=== PATIENT | male | born 1945 | race Caucasian/White ===

== ENCOUNTER 2017-08-20 16:42 | Inpatient (IN) | payer OTHER, MEDICARE ==
[~2017-08-20] VITALS: Ht 167.6 cm; Wt 71.9 kg
[2017-08-20 17:55] LABS: ABSOLUTE BASOPHIL COUNT 0 /CUMM (0.0-0.2); ABSOLUTE EOSINOPHIL COUNT 0 /CUMM (0.0-0.7); ABSOLUTE GRANULOCYTE CT 11.7 /CUMM (1.4-6.5); ABSOLUTE LYMPH COUNT 0.7 /CUMM (1.2-3.4); ABSOLUTE MONOCYTE COUNT 0.8 /CUMM (0.10-0.60); BASOPHIL % 0.2 % (0.0-2.0); EOSINOPHIL % 0.1 % (0-5); HEMATOCRIT 44.4 % (42-52); MEAN CORPUSCULAR HGB 28.7 PG (27.0-31.0); MEAN CORPUSCULAR HGB CONC 33.5 G/DL (33.0-37.0); MEAN CORPUSCULAR VOLUME 85.7 FL (80.0-94.0); MEAN PLATELET VOLUME 11.2 FL (7.4-10.4); PLATELET COUNT 96 /CUMM (130-400); RBC DISTRIBUTION WIDTH 13.5 % (11.5-14.5); RED BLOOD CELL CT 5.18 /CUMM (4.70-6.10); WHITE BLOOD CELL COUNT 13.3 /CUMM (4.8-10.8)
[2017-08-20 18:18] LABS: GRANULOCYTE % 88.6 % (42.2-75.2)
--- NOTE | 2017-08-20 20:43 | ED GENERAL ADULT ---
History of Present Illness General Chief Complaint: Fever Stated Complaint: FEVER, RIGHT SIDE OF HEADSKINRASH Source: aide Exam Limitations: poor historian Vital Signs & Intake/Output Vital Signs & Intake/Output Vital Signs Date Time Temp Pulse Resp B/P B/P Pulse O2 O2 Flow FiO2 Mean Ox Delivery Rate 08/20 2311 97.8 08/20 2310 97.8 08/21 1955 99.1 63 20 140/58 97 Room Air 08/20 1702 100.3 08/20 1656 100.8 72 18 137/69 95 Room Air ED Intake and Output 08/21 0000 08/20 1200 Intake Total Output Total Balance Patient 158 lb Weight Allergies Coded Allergies: fluoxetine (From PROZAC) (UNKNOWN 08/20/17) Triage Note: PT TO TRIAGE WITH ACT TUTOR , PER STAFF PT HAS NOT BEEN FEELING WELL, NOTED WITH FEVER AT HOME, PT TEMP 100.8 AT TRIAGE, MEDICATED WITH TYLENOL. PT NOTED WITH RIGHT EAR RED, SWOLLEN, QUESTION CELLULITIS. 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 yes Onset: Abrupt Duration: day(s): Timing: recent history HPI: 08/20/17 10:45 pm 72-year-old man presents to the emergency department with a sudden onset of severe right sided facial swelling and significant edema to the right ear. He also has fever and pain. He has a past medical history of cognitive impairment, mental retardation and cataracts. He has history of hearing loss. Past History Travel History Traveled to [place] past 21 day No Medical History Any Pertinent Medical History? 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 No Review of Systems Review of Systems Constitutional: Reports: fever. EENTM: Reports: ear pain, ear redness. Respiratory: Denies: short of breath. Cardiovascular: Denies: chest pain. GI: Denies: abdominal pain. Genitourinary: Reports: no symptoms. Musculoskeletal: Reports: see HPI. Skin: Reports: see HPI. Neurological/Psychological: Reports: no symptoms. Hematologic/Endocrine: Reports: no symptoms. Immunologic/Allergic: Reports: no symptoms. Physical Exam Physical Exam General Appearance: alert, awake, anxious Head: swelling, tenderness Eyes: Bilateral: normal appearance, PERRL, EOMI. Ears, Nose, Throat: normal pharynx, right facial swelling Neck: normal inspection, supple, full range of motion Respiratory: normal breath sounds, chest non-tender, no respiratory distress Cardiovascular: regular rate/rhythm Peripheral Pulses: 4+ radial (R), 4+ radial (L) Gastrointestinal: soft, non-tender Back: normal range of motion Extremities: normal range of motion Neurologic/Psych: awake, alert, oriented x 3 Skin: rash Comments: On physical exam the right ear is bright red and erythematous with significant swelling. Access to the external auditory canal is obtainable with otoscope but there is significant swelling. He has hot red angry erythema around the ear and streaking up around the right eye. There are no vesicular lesions. Core Measures ACS in differential dx? No CVA/TIA Diagnosis: No Sepsis Present: No Sepsis Focused Exam Completed? No Progress Differential Diagnoses I considered the following diagnoses in my evaluation of the patient: [ Cellulitis, malignant otitis externa, mastoiditis, varicella-zoster, necrotizing fasciitis] Plan of Care: Orders Procedure Date/time Status Regular Diet 08/21 B Active CBC WITHOUT DIFFERENTIAL 08/21 599 Active BASIC ELECTROLYTES PLUS BUN&CR 08/21 599 Active Change service to 08/21 0008 Active Pathway - chart 08/21 0001 Active Pathway - chart 08/20 2359 Active Patient Data 08/20 2343 Active ED Holding Orders 08/20 2316 Active Admit to inpatient 08/20 2316 Active Vital Signs 08/20 2316 Active Code Status 08/20 2316 Active BLOOD CULTURE 08/20 1704 Active LACTIC ACID 08/20 1703 Complete COMPREHENSIVE METABOLIC PANEL 08/20 1701 Complete CBC WITHOUT DIFFERENTIAL 08/20 1701 Complete Saline Lock 08/20 UNK Active House Staff 08/20 UNK Active Wound Care/Dressing 08/20 UNK Active VTE Mechanical Prophylaxis 08/20 UNK Active Current Medications Sig/Zulay Start time Last Medication Dose Stop Time Status Admin Enoxaparin Sodium 40 MG DAILY 08/21 1000 UNVr (Lovenox) Ampicillin Sodium/ 1,500 MG Q6 08/21 0600 UNVr Sulbactam Sodium (Unasyn) Sodium Chloride 100 ML (Normal Saline 0.9%) Hydrocodone Bitart/ 1 TAB Q6P PRN 08/21 0600 UNVr Acetaminophen (Vicodin) Acetaminophen 650 MG Q6P PRN 08/21 0100 UNVr (Tylenol) Morphine Sulfate 2 MG Q8P PRN 08/21 0015 UNVr (Morphine) Sodium Chloride 1,000 ML Q13H 08/21 0015 UNVr (Normal Saline 0.9%) 08/21 1314 Laboratory Tests 08/20/172002: Lactic Acid Cancelled 08/20/17 173: Lactic Acid 1.8 08/20/17 173: Anion Gap 13, Estimated GFR > 60, BUN/Creatinine Ratio 21.8, Glucose 110 H, Calcium 9.6, Total Bilirubin 0.6, AST 14 L, ALT 16 L, Alkaline Phosphatase 68, Total Protein 7.4, Albumin 4.2, Globulin 3.2, Albumin/Globulin Ratio 1.3, CBC w Diff NO MAN DIFF REQ, RBC 5.18, MCV 85.7, MCH 28.7, MCHC 33.5, RDW 13.5, MPV 11.2 H, Gran % 88.6 H, Lymphocytes % 5.4 L, Monocytes % 5.7, Eosinophils % 0.1, Basophils % 0.2, Absolute Granulocytes 11.7 H, Absolute Lymphocytes 0.7 L , Absolute Monocytes 0.8 H, Absolute Eosinophils 0, Absolute Basophils 0 Microbiology 08/20 173 BLOOD: Blood Culture - RECD 08/20 1724 BLOOD: Blood Culture - RECD Initial ED EKG: none Departure Departure Disposition: STILL A PATIENT Condition: Stable Clinical Impression Primary Impression: Cellulitis diffuse, face Referrals: Torrey Whaley MD (PCP/Family) Departure Forms: Customer Survey General Discharge Information Admission Note Spoke With: Torrey Whaley MD Documentation of Exam: Documentation of any treatments & extenuating circumstances including Concerns Regarding Discharge (functional status, medication knowledge or non-compliance, living conditions, etc.) that warrant an admission rather than observation: [The patient needs admission for IV antibiotics, reevaluation to ensure improvement.] Critical Care Note Critical Care Note Critical Care Time: non-applicable
[2017-08-21 00:47] VITALS: BP 128/62
--- NOTE | 2017-08-21 02:08 | History & Physical ---
See Addendum Tina CABALLEROLuna 08/21/17 0207: General Information and HPI MD Statement: I have seen and personally examined AUGUSTINA LOPEZ and documented this H&P. The patient is a 72 year old M who presented with a patient stated chief complaint of right ear swelling and erythema. 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 The patient lives at a shelter and member of his care team gives most of the history as the patient does have some degree of cognitive impairment. 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 The patient usually wears hearing aids bilaterally every day. The patient states that he has no pain in the ear, no pain in the pinna or targus, no fever, no ear discharge, dizziness, falls. He did apparently have a fever of 101 and chills. The patient has not had any recent antibiotic use, no new drugs. He states that his hearing was worse couple days ago but is better now. His appetite is decreased. According to the caregiver, the patient does have teeth that need to be extracted, but has no current tooth infection. The patient has never had any symptoms like this before. The patient notes no injury to the ear but the staff does admit to using Q-tips to clean the ears. The patient denies diaphoresis, nausea, vomiting, abdominal pain, diarrhea, constipation, chest pain, shortness of breath, urinary changes. The patient's brother is his legal guardian. The patient has no history of smoking, drugs, drinking. The patient walks with no problems unassisted. [facility]. 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 Psychosocial History Where do you live? 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 EENTM: Reports: ear redness, hearing changes. Denies: eye pain, eye drainage, eye tearing, ear discharge, ear pain. Cardiovascular: Reports: no symptoms. Respiratory: Reports: no symptoms. GI: Reports: no symptoms. Genitourinary: Reports: no symptoms. Musculoskeletal: Reports: no symptoms. Skin: Reports: no symptoms, erythema. Neurological/Psychological: Reports: cognitive dysfunction. Hematologic/Endocrine: Reports: no symptoms. Immunologic/Allergic: Reports: no symptoms. Exam & Diagnostic Data Last 24 Hrs of Vital Signs/I&O Vital Signs Date Time Temp Pulse Resp B/P B/P Pulse O2 O2 Flow FiO2 Mean Ox Delivery Rate 08/21 0556 99.0 58 20 124/86 98 Room Air 08/21 0047 99.3 68 20 128/62 99 Room Air 08/20 2311 97.8 08/20 2310 97.8 08/20 1956 99.1 63 20 140/58 97 Room Air 08/20 1702 100.3 08/20 1656 100.8 72 18 137/69 95 Room Air Intake & Output 08/21 1600 08/21 0800 08/21 0000 Intake Total 940 Output Total Balance 940 Intake, IV 700 Intake, Oral 240 Patient 159 lb 158 lb Weight Weight Bed scale Measurement Method Physical Exam General Appearance Alert, Oriented X3, Cooperative, No Acute Distress Skin No Breakdown, Right ear erythema and swelling involving the targus and pinna, no discharge, hearing intact, patient able to differentiate sounds direction, no open lesions, otoscope difficult to appreciate tympanic membrane due to hair and wax in ear, no erythema in inner ear clearly appreciated Skin Temp/Moisture Exam: Warm/Dry Sepsis Skin Exam (color): Normal for Ethnicity HEENT Atraumatic, PERRLA, EOMI, Mucous Membr. moist/pink Neck Supple, No JVD Lymphatic Axillary nl, Cervical nl Cardiovascular Regular Rate, Normal S1, Normal S2, No Murmurs Lungs Clear to Auscultation, Normal Air Movement Abdomen Normal Bowel Sounds, Soft, No Tenderness, No Hepatospenomegaly, No Masses Neurological Normal Speech, Cranial Nerves 3-12 NL Extremities No Clubbing, No Cyanosis, No Edema, Normal Pulses, No Tenderness/ Swelling Vascular Normal Pulses, Pulses Symmetrical Sepsis Peripheral Pulse Location: Radial Sepsis Peripheral Pulse Exam: Normal Sepsis Cap Refill Exam: <2 Sec Body Front and Back (Adult) 1) Last 24 Hrs of Labs/Geoff: Laboratory Tests 08/21/17 0600: Sodium Pending, Potassium Pending, Chloride Pending, Carbon Dioxide Pending, Anion Gap Pending, BUN Pending, Creatinine Pending, BUN/Creatinine Ratio Pending , CBC w Diff Pending, WBC Pending, RBC Pending, Hgb Pending, Hct Pending, MCV Pending, MCH Pending, MCHC Pending, RDW Pending, Plt Count Pending, MPV Pending 08/20/172002: Lactic Acid Cancelled 08/20/171737: Lactic Acid 1.8 08/20/17 173: Anion Gap 13, Estimated GFR > 60, BUN/Creatinine Ratio 21.8, Glucose 110 H, Calcium 9.6, Total Bilirubin 0.6, AST 14 L, ALT 16 L, Alkaline Phosphatase 68, Total Protein 7.4, Albumin 4.2, Globulin 3.2, Albumin/Globulin Ratio 1.3, CBC w Diff NO MAN DIFF REQ, RBC 5.18, MCV 85.7, MCH 28.7, MCHC 33.5, RDW 13.5, MPV 11.2 H, Gran % 88.6 H, Lymphocytes % 5.4 L, Monocytes % 5.7, Eosinophils % 0.1, Basophils % 0.2, Absolute Granulocytes 11.7 H, Absolute Lymphocytes 0.7 L , Absolute Monocytes 0.8 H, Absolute Eosinophils 0, Absolute Basophils 0 Microbiology 08/20 173 BLOOD: Blood Culture - RECD 08/20 1724 BLOOD: Blood Culture - RECD Assessment/Plan Assessment: This is a 72-year-old male with a past medical history significant for hypertension, cataracts, bilateral hearing deficit, 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 The patient also had chills and fever to 101. He has no discharge or pain but does have some hearing change on top of his chronic hearing problems (although the patient responded that this has resolved). The patient does wear hearing aids every day. In the ED, temperature found to be 100.8, WBC 13.3 with granulocyte predominance , lactic acid 1.8. Physical exam showed a swollen and erythematous right ear with difficult otoscopic exam secondary to wax and hair. The patient meets sepsis criteria as he has a temperature with white blood cell count over 12,000 and a suspected source of infection. Involvement of the inner ear cannot be excluded as physical exam is difficult secondary to hair and wax. The patient does however deny any pain and as stated previously his minor hearing change has cleared up and he is back at baseline hearing. Patient has no cranial nerve deficits. No lymphadenopathy. Differential includes cellulitis, otitis externa if the outer canal is involved, allergic reaction, seborrheic dermatitis. Patient denies any exposure to fluoxetine which is the only thing he is allergic to, clinically is not suggestive of allergic reaction. Patient has no pain, discharge that is suggestive of otitis externa, although he does have the hearing loss and uses hearing aids that could introduce bacteria. Seborrheic dermatitis is a possibility, benign, but as patient is septic, we will treat for potential cellulitis. Malignant otitis externa is not suggested even though patient is febrile and meet sepsis criteria. Plan Cellulitis of right ear/potential otitis externa -Unasyn 1.5 g every 6 -Normal saline at a rate of 75 mL per hour -Neurochecks q4h -Consider CT scan of the head if malignant otitis externa is suspected -Blood cultures 2 -Trend CBC and fever curve -Pain pathway if needed DVT prophylaxis with Alps and Lovenox Regular diet Patient is full code As Ranked By This Provider Problem List: 1. Cellulitis diffuse, face Core Measures/Misc (03/03) Acute Coronary Syndrome ACS Diagnosis: No Congestive Heart Failure Congestive Heart Failure Diagnosis No Cerebrovascular Accident CVA/TIA Diagnosis: No VTE (View Protocol) VTE Risk Factors Acute Medical Illness No Mechanical VTE Prophylaxis d/t N/A MechProphylax Ordered No VTE Pharm Prophylaxis d/t NA PharmProphylax ordered Sepsis (View protocol) Sepsis Present: Yes Jessica Grissom 08/21/17 0225: Resident Review Statement Resident Statement: examined this patient, discussed with digital intern, agreed with digital intern, discussed with nursing, discussed with case mgmt, reviewed images Other Findings: Mr. Lopez is a 72-year-old man with past medical history of hypertension, mild cognitive impairment presented from shelter for concern of erythema, swelling , redness of right ear and right side of the face. He was found to have fever of 100.8, and his lab showed WBC of 13.3, blood culture sent by emergency department, he was given a dose of IV Unasyn will continue with that, will hydrate with 1 bag of normal saline, he is tolerating by mouth intake, DVT prophylaxis with SC Lovenox, he is a full code Please confirm medications at am For emergency contact his legal guardian is Burt (his brother) he can be reached at [phone]
[2017-08-21 05:56] VITALS: BP 124/86
[2017-08-21 08:22] LABS: ABSOLUTE BASOPHIL COUNT 0 /CUMM (0.0-0.2); ABSOLUTE EOSINOPHIL COUNT 0 /CUMM (0.0-0.7); ABSOLUTE GRANULOCYTE CT 7.8 /CUMM (1.4-6.5); ABSOLUTE LYMPH COUNT 1.2 /CUMM (1.2-3.4); ABSOLUTE MONOCYTE COUNT 1.3 /CUMM (0.10-0.60); BASOPHIL % 0.3 % (0.0-2.0); EOSINOPHIL % 0.3 % (0-5); GRANULOCYTE % 75.6 % (42.2-75.2); MEAN CORPUSCULAR HGB CONC 33.5 G/DL (33.0-37.0); MEAN CORPUSCULAR VOLUME 86.7 FL (80.0-94.0); MEAN PLATELET VOLUME 12.4 FL (7.4-10.4); RBC DISTRIBUTION WIDTH 13.8 % (11.5-14.5); RED BLOOD CELL CT 4.85 /CUMM (4.70-6.10); WHITE BLOOD CELL COUNT 10.3 /CUMM (4.8-10.8)
[2017-08-21 09:29] LABS: PLATELET COUNT 83 /CUMM (130-400)
[2017-08-21 13:47] VITALS: BP 120/54
--- NOTE | 2017-08-21 13:57 | Admission Certification ---
Admission Certification Certification Statement - As attending physician, I certify that at the time of - admission, based on clinical presentation, severity of - symptoms, need for further diagnostic testing and - therapeutic interventions, and risk of adverse outcomes - without in-hospital treatment, in my clinical assessment, - this patient requires an acute hospital stay for a minimum - of two nights or longer. I have also considered psychsocial - factors such as support system, advanced age, financial - issues, cognitive issues, and failed out-patient treatments, - past re-admission history, safety of patient, and lack of - compliance as applicable. Specific rationale supporting this admission is: Severe facial cellulitis
--- NOTE | 2017-08-21 14:00 | PN- Att Addend ---
Attending Addendum Attending Brief Note 72-year-old male lives in a [facility] was found to have suddenly in the last day or so redness or warmth on the right side of his face which got progressively worse and was brought to the emergency room low-grade temperature might leukocytosis and all cultures were obtained was started on IV antibiotics and admitted. After a few hours to redness is still there but it's not as severe per age who works with him at the [facility]. His white count is slightly down but will continue at least 24 more hours with IV antibiotics and check his cultures. 24 TOTALS 08/21 0000 08/20 0000 Intake Total Output Total Balance Patient 158 lb Weight Current Medications Sig/Zulay Start time Last Medication Dose Route Stop Time Status Admin Acetaminophen 650 MG Q6P PRN 08/21 0100 AC 08/21 PO 1355 Acetaminophen 650 MG ONCE ONE 08/20 1715 DC 08/20 PO 08/20 1716 1702 Ampicillin Sodium/ 1,500 MG Q6 08/21 1200 AC 08/21 Sulbactam Sodium IV 1243 Sodium Chloride 100 ML Ampicillin Sodium/ 1,500 MG Q6 08/21 0600 DC 08/21 Sulbactam Sodium IV 0537 Sodium Chloride 100 ML Ampicillin Sodium/ 0 .STK-MED ONE 08/20 2308 DC Sulbactam Sodium .ROUTE Ampicillin Sodium/ 3,000 MG ONCE ONE 08/20 2300 DC 08/20 Sulbactam Sodium IV 08/20 2329 2306 Sodium Chloride 100 ML Cefazolin Sodium 2 GM IQ8 08/21 0800 CAN N/A 1 UNIT IV Enoxaparin Sodium 40 MG DAILY 08/21 1000 AC 08/21 SC 1031 Hydrocodone Bitart/ 1 TAB Q6P PRN 08/21 0600 AC Acetaminophen PO Morphine Sulfate 2 MG Q8P PRN 08/21 0015 AC IV Patient Medication 1 ED ONE ONE 08/21 1030 DC Teaching ED 08/21 1031 Sodium Chloride 1,000 ML Q13H 08/21 0015 DC 08/21 IV 08/21 1314 0047 Tamsulosin HCl 0.4 MG DAILY 08/21 1322 AC PO Laboratory Tests 08/21/17 0600: Anion Gap 10, Estimated GFR > 60, BUN/Creatinine Ratio 20.0, CBC w Diff NO MAN DIFF REQ, RBC 4.85, MCV 86.7, MCH 29.0, MCHC 33.5, RDW 13.8, MPV 12.4 H, Gran % 75.6 H, Lymphocytes % 11.6 L, Monocytes % 12.2 H, Eosinophils % 0.3, Basophils % 0.3, Absolute Granulocytes 7.8 H, Absolute Lymphocytes 1.2, Absolute Monocytes 1.3 H, Absolute Eosinophils 0, Absolute Basophils 0 08/20/172002: Lactic Acid Cancelled 08/20/171737: Lactic Acid 1.8 08/20/17 173: Anion Gap 13, Estimated GFR > 60, BUN/Creatinine Ratio 21.8, Glucose 110 H, Calcium 9.6, Total Bilirubin 0.6, AST 14 L, ALT 16 L, Alkaline Phosphatase 68, Total Protein 7.4, Albumin 4.2, Globulin 3.2, Albumin/Globulin Ratio 1.3, CBC w Diff NO MAN DIFF REQ, RBC 5.18, MCV 85.7, MCH 28.7, MCHC 33.5, RDW 13.5, MPV 11.2 H, Gran % 88.6 H, Lymphocytes % 5.4 L, Monocytes % 5.7, Eosinophils % 0.1, Basophils % 0.2, Absolute Granulocytes 11.7 H, Absolute Lymphocytes 0.7 L , Absolute Monocytes 0.8 H, Absolute Eosinophils 0, Absolute Basophils 0 Vital Signs Date Time Temp Pulse Resp B/P B/P Pulse O2 O2 Flow FiO2 Mean Ox Delivery Rate 08/21 1347 100.1 63 18 120/54 97 Room Air 08/21 0556 99.0 58 20 124/86 98 Room Air 08/21 0047 99.3 68 20 128/62 99 Room Air 08/20 2311 97.8 08/20 2310 97.8 08/20 1956 99.1 63 20 140/58 97 Room Air 08/20 1702 100.3 08/20 1656 100.8 72 18 137/69 95 Room Air
--- NOTE | 2017-08-21 16:23 | Event Note ---
Event Note Event Note: S: Limited by the nurse the patient was developing a erythematous rash. B: Patient was admitted for cellulitis of the right external ear, treated with IV Unasyn. Only Choledyl allergy is to fluoxetine. AR: Patient was seen and examined at bedside. Vital signs are stable: Pulse 71, BP 120/68, pulse ox 97% on RA, T 99, RR 18. Patient had a erythematous patches on his right-sided face, right arm, abdomen, knees bilaterally. These areas are warm to the touch. Likely represents mild allergic reaction. Only new medication is IV Unasyn. IV Unasyn discontinued, patient started on Bactrim. Given 40 mg of prednisone. This plan was discussed with attending, Dr. Whaley.
[2017-08-21 16:45] VITALS: BP 120/68
[2017-08-21 21:48] VITALS: BP 110/50
[2017-08-22 06:51] VITALS: BP 128/60
--- NOTE | 2017-08-22 07:13 | PN- Housestaff ---
Subjective Follow-up For: Right external ear cellulitis Subjective: Patient was seen and examined at bedside. He was resting comfortably. Last night he developed erythematous patches likely secondary to allergic reaction possibly to Unasyn, cyanosis or stable and he was in no respiratory distress. See event note for full details. He currently has no complaints and denies any nausea, vomiting, fever, chills. Review of Systems Constitutional: Denies: chills, fever, malaise. EENTM: Reports: no symptoms. Cardiovascular: Denies: chest pain, palpitations. Respiratory: Denies: cough, short of breath. Gastrointestinal: Reports: no symptoms. Genitourinary: Reports: no symptoms. Musculoskeletal: Reports: no symptoms. Skin: Reports: rash. Objective Last 24 Hrs of Vital Signs/I&O Vital Signs Date Time Temp Pulse Resp B/P B/P Pulse O2 O2 Flow FiO2 Mean Ox Delivery Rate 08/22 0651 97.6 52 20 128/60 98 Room Air 08/21 2148 97.6 56 18 110/50 97 08/21 1645 99.9 71 18 120/68 97 Room Air 08/21 1531 99.4 08/21 1530 65 120/60 08/21 1347 100.1 63 18 120/54 97 Room Air Intake & Output 08/22 0800 08/22 0000 08/21 1600 Intake Total 10 1010 730 Output Total 0 600 500 Balance 10 410 230 Intake, IV 10 10 130 Intake, Oral 0 1000 600 Number 0 0 Bowel Movements Output, Urine 0 600 500 Physical Exam General Appearance: Alert, Cooperative, No Acute Distress Skin: blanchable erythematous patch on the R external ear extending to the R cheek, there is mild induration of the R cheek, erythematous patches on the R arm, BL knees, and abdomen improved Skin Temp/Moisture Exam: Warm/Dry Sepsis Skin Exam (color): Normal for Ethnicity HEENT: difficult to perform otoscopic exam due to swelling, large amounts of waxy build up in the ear Cardiovascular: Regular Rate, Normal S1, Normal S2 Lungs: Clear to Auscultation, Normal Air Movement Abdomen: Normal Bowel Sounds, Soft, No Tenderness Neurological: Normal Speech, Normal Tone, Sensation Intact Current Medications: Current Medications Sig/Zulay Start time Last Medication Dose Route Stop Time Status Admin Acetaminophen 650 MG Q6P PRN 08/21 0100 AC 08/21 PO 1355 Ampicillin Sodium/ 1,500 MG Q6 08/21 1200 DC 08/21 Sulbactam Sodium IV 1243 Sodium Chloride 100 ML Enoxaparin Sodium 40 MG DAILY 08/21 1000 AC 08/21 SC 1031 Hydrocodone Bitart/ 1 TAB Q6P PRN 08/21 0600 AC Acetaminophen PO Morphine Sulfate 2 MG Q8P PRN 08/21 0015 AC IV Patient Medication 1 ED ONE ONE 08/21 1030 DC Teaching ED 08/21 1031 Prednisone 40 MG ONCE ONE 08/21 1615 DC 08/21 PO 08/21 1616 1758 Sodium Chloride 1,000 ML Q13H 08/21 0015 DC 08/21 IV 08/21 1314 0047 Tamsulosin HCl 0.4 MG DAILY 08/21 1322 AC 08/21 PO 1530 Trimethoprim/ 1 TAB BID 08/21 2200 AC 08/21 Sulfamethoxazole PO 2157 Last 24 Hrs of Lab/Geoff Results Last 24 Hrs of Labs/Mics: Laboratory Tests 08/22/17 0718: CBC w Diff NO MAN DIFF REQ, RBC 5.06, MCV 86.8, MCH 28.8, MCHC 33.2, RDW 13.7, MPV 11.7 H, Gran % 82.8 H, Lymphocytes % 11.8 L, Monocytes % 5.2, Eosinophils % 0, Basophils % 0.2, Absolute Granulocytes 7.1 H, Absolute Lymphocytes 1.0 L, Absolute Monocytes 0.4, Absolute Eosinophils 0, Absolute Basophils 0 Assessment/Plan Assessment: Patient is a 72-year-old male with a PMH significant for HTN, cataracts, bilateral hearing deficit, 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 He had a fever MAXIMUM TEMPERATURE 100.8 with leukocytosis on presentation. #Cellulitis Leyva Valverde syndrome syndrome extremely unlikely given lack of vesicles, no focal neurological deficits. Patient was treated with IV Unasyn but had a suspected allergic reaction last night and this was transitioned to Bactrim oral. Leukocytosis improved patient has been afebrile. -DC home on oral Bactrim DS by mouth twice a day for total of 10 day course -Patient will follow up with Dr. Whaley as an outpatient. #Chronic medical problems -Continue Flomax, this is patient's only home medication Diet: Regular diet DVT prophylaxis: Lovenox, ALPS CODE STATUS: Full code Problem List: 1. Cellulitis diffuse, face Pain Ratin Pain Location: none Pain Goal: Pain 4 or less (pain pathway) Pain Plan: pain pathway Tomorrow's Labs & Rationales: none Discharge Plan Discharge Disposition: home Stable for Discharge? Yes Anticipated Discharge (Day): today If Discharged Today/In 24 Hrs: W-10/discharge paper done, DC summary done, CMR done
[2017-08-22 08:20] VITALS: BP 128/60
[2017-08-22 08:20] LABS: ABSOLUTE BASOPHIL COUNT 0 /CUMM (0.0-0.2); ABSOLUTE EOSINOPHIL COUNT 0 /CUMM (0.0-0.7); ABSOLUTE GRANULOCYTE CT 7.1 /CUMM (1.4-6.5); ABSOLUTE MONOCYTE COUNT 0.4 /CUMM (0.10-0.60); BASOPHIL % 0.2 % (0.0-2.0); EOSINOPHIL % 0 % (0-5); GRANULOCYTE % 82.8 % (42.2-75.2); MEAN CORPUSCULAR HGB 28.8 PG (27.0-31.0); MEAN CORPUSCULAR HGB CONC 33.2 G/DL (33.0-37.0); MEAN CORPUSCULAR VOLUME 86.8 FL (80.0-94.0); MEAN PLATELET VOLUME 11.7 FL (7.4-10.4); RBC DISTRIBUTION WIDTH 13.7 % (11.5-14.5); RED BLOOD CELL CT 5.06 /CUMM (4.70-6.10); WHITE BLOOD CELL COUNT 8.6 /CUMM (4.8-10.8)
[2017-08-22 09:31] LABS: PLATELET COUNT 79 /CUMM (130-400)
--- NOTE | 2017-08-22 12:23 | PN- Att Addend ---
Attending Addendum Attending Brief Note Patient might have had an allergic reaction to the antibiotic yesterday evening was treated promptly by editing intern. Antibiotics was changed diet today patient looking much better and the swelling on the face is much much less, his afebrile. No other changes noted will discharge back to the assisted and tinea and the by mouth antibiotic , follow-up in the office as an outpatient see the CMR. Intake & Output 08/22 1600 08/22 0400 08/21 1600 08/21 0400 08/20 1600 08/20 0400 Intake Total 10 1010 1570 100 Output Total 0 600 500 Balance 10 410 1070 100 Intake, IV 10 10 730 100 Intake, Oral 0 1000 840 Number 0 0 Bowel Movements Output, Urine 0 600 500 Patient 159 lb 158 lb Weight Weight Bed scale Measurement Method Current Medications Sig/Zulay Start time Last Medication Dose Route Stop Time Status Admin Acetaminophen 650 MG Q6P PRN 08/21 0100 AC 08/21 PO 1355 Ampicillin Sodium/ 1,500 MG Q6 08/21 1200 DC 08/21 Sulbactam Sodium IV 1243 Sodium Chloride 100 ML Enoxaparin Sodium 40 MG DAILY 08/21 1000 AC 08/22 SC 0820 Hydrocodone Bitart/ 1 TAB Q6P PRN 08/21 0600 AC Acetaminophen PO Morphine Sulfate 2 MG Q8P PRN 08/21 0015 AC IV Prednisone 40 MG ONCE ONE 08/21 1615 DC 08/21 PO 08/21 1616 1758 Sodium Chloride 1,000 ML Q13H 08/21 0015 DC 08/21 IV 08/21 1314 0047 Tamsulosin HCl 0.4 MG DAILY 08/21 1322 AC 08/22 PO 0820 Trimethoprim/ 1 TAB BID 08/21 2200 AC 08/22 Sulfamethox[place] PO 0820 Laboratory Tests 08/22/17 0718: CBC w Diff NO MAN DIFF REQ, RBC 5.06, MCV 86.8, MCH 28.8, MCHC 33.2, RDW 13.7, MPV 11.7 H, Gran % 82.8 H, Lymphocytes % 11.8 L, Monocytes % 5.2, Eosinophils % 0, Basophils % 0.2, Absolute Granulocytes 7.1 H, Absolute Lymphocytes 1.0 L, Absolute Monocytes 0.4, Absolute Eosinophils 0, Absolute Basophils 0 08/21/17 0600: Anion Gap 10, Estimated GFR > 60, BUN/Creatinine Ratio 20.0, CBC w Diff NO MAN DIFF REQ, RBC 4.85, MCV 86.7, MCH 29.0, MCHC 33.5, RDW 13.8, MPV 12.4 H, Gran % 75.6 H, Lymphocytes % 11.6 L, Monocytes % 12.2 H, Eosinophils % 0.3, Basophils % 0.3, Absolute Granulocytes 7.8 H, Absolute Lymphocytes 1.2, Absolute Monocytes 1.3 H, Absolute Eosinophils 0, Absolute Basophils 0 08/20/172002: Lactic Acid Cancelled 08/20/171737: Lactic Acid 1.8 08/20/171737: Anion Gap 13, Estimated GFR > 60, BUN/Creatinine Ratio 21.8, Glucose 110 H, Calcium 9.6, Total Bilirubin 0.6, AST 14 L, ALT 16 L, Alkaline Phosphatase 68, Total Protein 7.4, Albumin 4.2, Globulin 3.2, Albumin/Globulin Ratio 1.3, CBC w Diff NO MAN DIFF REQ, RBC 5.18, MCV 85.7, MCH 28.7, MCHC 33.5, RDW 13.5, MPV 11.2 H, Gran % 88.6 H, Lymphocytes % 5.4 L, Monocytes % 5.7, Eosinophils % 0.1, Basophils % 0.2, Absolute Granulocytes 11.7 H, Absolute Lymphocytes 0.7 L , Absolute Monocytes 0.8 H, Absolute Eosinophils 0, Absolute Basophils 0 Microbiology 08/20 1737 BLOOD: Blood Culture - RES 08/20 1724 BLOOD: Blood Culture - RES Microbiology 08/20 1737 BLOOD: Blood Culture - RES 08/20 1724 BLOOD: Blood Culture - RES Vital Signs Date Time Temp Pulse Resp B/P B/P Pulse O2 O2 Flow FiO2 Mean Ox Delivery Rate 08/22 0820 97.6 52 20 128/60 08 0651 97.6 52 20 128/60 98 Room Air 08/21 2148 97.6 56 18 110/50 97 08/21 1645 99.9 71 18 120/68 97 Room Air 08/21 1531 99.4 08/21 1530 65 120/60 08/21 1347 100.1 63 18 120/54 97 Room Air White count is normal.
--- NOTE | 2017-08-22 13:29 | Patient Discharge Instructions ---
Discharge Instructions General Discharge Information You were seen/treated for: Cellulitis Special Instructions: Take all medications as directed. Follow-up with Dr. Whaley within 1-2 weeks of discharge, or if symptoms worsen. Call your doctor or return to the ER if you should experience a fever, facial paralysis, hearing loss, or if you develop vessicles within the rash. Developed an allergic reaction (rash) to while on Unasyn Acute Coronary Syndrome Inclusion Criteria At DC or during hospital stay patient has or had the following: ACS DIAGNOSIS No Discharge Core Measures Meds if any: Prescribed or Continued at Discharge Meds if any: NOT Prescribed or Continued at Discharge Congestive Heart Failure Inclusion Criteria At DC or during hospital stay patient has or had the following: CHF DIAGNOSIS No Discharge Core Measures Meds if any: Prescribed or Continued at Discharge Meds if any: NOT Prescribed or Continued at Discharge Cerebrovascular accident Inclusion Criteria At DC or during hospital stay patient has or had the following: CVA/TIA Diagnosis No Discharge Core Measures Meds if any: Prescribed or Continued at Discharge Meds if any: NOT Prescribed or Continued at Discharge Venous thromboembolism Inclusion Criteria VTE Diagnosis No VTE Type NONE VTE Confirmed by (Test) NONE Discharge Core Measures - Per Current guidelines, there needs to be overlap - treatment for the first 5 days of Warfarin therapy. - If discharged on Warfarin prior to 5 days of - overlap therapy, the patient will need to be - assessed for post discharge needs including - *Post discharge parental anticoagulation - *Warfarin and/or parental anticoagulation education - *Follow up date to check INR post discharge At least 5 days overlap therapy as Inpatient No Meds if any: Prescribed or Continued at Discharge Note: Overlap Therapy is Warfarin and Anticoagulant Meds if any: NOT Prescribed or Continued at Discharge
--- NOTE | 2017-08-22 13:41 | Discharge Summary ---
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 In the ED, temperature found to be 100.8, WBC 13.3 with granulocyte predominance , lactic acid 1.8. Physical exam showed a swollen and erythematous right ear with difficult otoscopic exam secondary to wax and hair. The patient meets sepsis criteria as he has a temperature with white blood cell count over 12,000 and a suspected source of infection. Involvement of the inner ear cannot be excluded as physical exam is difficult secondary to hair and wax. The patient does however deny any pain and as stated previously his minor hearing change has cleared up and he is back at baseline hearing. Patient has no cranial nerve deficits. No lymphadenopathy. Assessment and Plan 1. Cellulitis of right ear Patient was started on IV Unasyn but developed an erythematous rash so this was discontinued and bactrim started. WBC resolved, and he remains afebrile. He will complete a total of 10day of antibiotics (already recieved a full day of antibiotics in the hospital). Preliminary blood cultures 2 negatives far. Erythematous rash from unasyn rash resolving. 2. Continue any chronic medications. Complications: Allergic reaction to Unasyn-Generalized rash Allergies: Coded Allergies: ampicillin (From UNASYN) (Mild, RASH 08/22/17) sulbactam (From UNASYN) (Mild, RASH 08/22/17) fluoxetine (From PROZAC) (UNKNOWN 08/20/17) Significant Procedures: none Disposition Summary Disposition Principal Diagnosis: Facial cellulitis Additional Diagnosis: Hx of HTN Discharge Disposition: home or self care Discharge Instructions General Discharge Information Code Status: Full Code Patient's Diet: Regular Diet Patient's Activity: As tolerated Follow-Up Instructions/Appts: Take all medications as directed. Please follow up with your PCP in 1 week. Medications at Discharge Discharge Medications: Continue taking these medications: Tamsulosin HCl (Flomax) 0.4 MG CAP.ER.24H 1 Capsule ORAL DAILY Comments: Last Taken: 08/22/17 Time: 0820AM Start taking the following new medications: Sulfamethoxazole/Trimethoprim (Sulfamethoxazole-Tmp Ds Tablet) 800 MG-160 MG TABLET 1 Tablet ORAL TWICE DAILY Qty = 18 No Refills Comments: Last Taken: 08/23/27 Time: 0820AM Copies To: Torrey Whaley MD
[2017-08-22] MEDS ORDERED: SULFAMETHOXAZO1 EAC1 PO (13:56)
[2017-08-22] MEDS ORDERED: FLOMAX0.4 M1 PO (14:07)
== END 2017-08-22 15:00 | DRG 156 ==
LOC: ERH 16:42 → ERHI 23:16 → 2NB 23:16 → ENRESERV 08-21 00:11 → 2NB 08-21 00:57 → ENPENDDIS 08-22 14:52 → ENTRNSPT 08-22 14:52 → EDTRNSPTSTS 08-22 14:55 → EDTRNSPT 08-22 14:55 → 2NB 08-22 15:00 → CMPTRNSPT 08-22 15:39
PROVIDERS: Dermatology; Emergency Medicine; Student in an Organized Health Care Education/Training Program
DX: H60.11 Cellulitis of right external ear (principal); F70 Mild intellectual disabilities; G31.84 Mild cognitive impairment of uncertain or unknown etiology; L23.3 Allergic contact dermatitis due to drugs in contact with skin; T36.0X5A Adverse effect of penicillins, initial encounter; I10 Essential (primary) hypertension; H91.93 Unspecified hearing loss, bilateral; N40.0 Benign prostatic hyperplasia without lower urinary tract symptoms
CPT/HCPCS: 2NBP; ERO; 36592; 82436; 87040; 96374; J1650